=== PATIENT | female | born 2000 | race Caucasian/White ===

== ENCOUNTER 2023-05-19 16:37 | Emergency (ER) | payer OTHER, SELFPAY ==
[2023-05-19 16:42] VITALS: BP 125/86
--- NOTE | 2023-05-19 17:11 | ED.GENMED ---
History of Present Illness
General
Chief Complaint: Abdominal Pain
Source: patient and family
Exam Limitations: none
Time Seen by Provider: 05/19/23 17:05
Nursing documentation reviewed up to this point in time: agreed with
Travel History
Have you had any contact with someone who has COVID-19?: No
Do you have any symptoms of coronavirus? Fever > 100 degrees, chills, cough, shortness of breath, sore throat, loss of taste or smell, muscle aches, or headache?: No
History of Present Illness
History of Present Illness:
Patient is a 23-year-old female presents to the emergency department with acute onset of right flank and right lower quadrant abdominal pain 45 minutes prior to the emergency department. Patient states the pain is severe. Patient denies fever or
chills. Patient denies any previous history of similar pain. Patient had nausea with vomiting but denies any diarrhea or constipation. Patient admits to minimal dysuria but denies any hematuria, dark urine, urgency or frequency. Patient's
grandfather has a history of kidney stones. Patient does not get her period due to control. Patient denies any recent illnesses or injuries.
Past History
Past History
ED Past Medical History: None
Social History
Tobacco: Non-smoker
Alcohol: Binge drinker
Family History
Family History: Other
Review of Systems
Review of Systems
All Other Systems: ROS reviewed and negative except as documented in HPI and ROS
Constitutional: Reports no symptoms
EENT: Reports no symptoms
Respiratory: Reports no symptoms
Cardiac: Reports no symptoms
ABD/GI: Reports abdominal pain, nausea, vomiting and anorexia; Denies diarrhea or constipated
: Reports dysuria and flank pain; Denies frequency, urgency, bleeding or dark urine
Musculoskeletal: Reports back pain
Skin: Reports no symptoms
Neurological: Reports no symptoms
Hematologic/Lymphatic: Reports no symptoms
Phy Exam
Physical Exam
Physical Exam:
Physical Exam
General: significant distress, alert and appropriate, well nourished, well hydrated
HENT: Normocephalic, supple with no lymphadenopathy, no thyromegaly
Eyes: Clear sclera, conjuctiva without injection
Heart: Regular rhythm and rate. No S3, S4. No murmur.
Lungs: No respiratory distress, no stridor, lung sounds clear and equal bilaterally
Abdomen: Soft, minimal right-sided tenderness without guarding or rebound, no organomegaly, right CVA tenderness, BS good
Neuro: Alert and oriented x 3, CN II - XII intact, no motor focality, no cerebellar dysfunction
Skin: no rash
Psychiatric: well kept. interactive and cooperative
Extremities: No edema, cyanosis, tenderness, Good and equal peripheral pulses.
Scores
Heart Failure Risk
Heart Failure Risk Score: Not Applicable
Heart Score for Chest Pain Patients
STEMI patient?: Not applicable
Withdrawal Assessment of Alcohol
Withdrawal Assessment Completed?: Not applicable
Course
Orders/Labs/Results
Orders:
Orders
05/19/23 17:01
HYDROmorphone [Dilaudid] 1 mg .ROUTE .STK-MED ONE
Ketorolac [Toradol] 15 mg .ROUTE .STK-MED ONE
Ondansetron Injectable [Zofran] 4 mg .ROUTE .STK-MED ONE
05/19/23 17:10
0.9% Sodium Chloride 500 ml [Nss] 500 ml IV BOLUS
HYDROmorphone [Dilaudid] 1 mg IV NOW STA
Ketorolac [Toradol] 15 mg IV NOW STA
Ondansetron Injectable [Zofran] 4 mg IV NOW STA
Test Result ONCE
05/19/23 17:11
CT Abd/pel Without Iv Or Oral Urgent
Comment:
Reason For Exam: Right renal colic
05/19/23 17:16
Complete Blood Count/With Diff Urgent
Comprehensive Metabolic Panel Urgent
HCG, Serum Qualitative Screen Urgent
05/19/23 18:31
Urinalysis Reflex To Culture Urgent
Date Specimen was Collected: 05/19/23
Time Specimen was Collected: 18:30
Abnormal Lab Results
05/19/23 05/19/23
17:16 18:31
WBC 13.7 H 10^3/uL
(4.8-10.8)
MCH 33.3 H pg
(27.0-31.0)
Abs Immat Gran (auto) 0.1 H 10^3/uL
(0-0.05)
Absolute Neuts (auto) 8.1 H 10^3/uL
(1.4-6.5)
Absolute Lymphs (auto) 4.4 H 10^3/uL
(1.2-3.4)
Absolute Monos (auto) 1.0 H 10^3/uL
(0.1-0.6)
BUN 18 H mg/dl
(7-17)
Glucose 140 H mg/dl
(70-99)
AST 40 H U/L
(14-36)
ALT 51 H U/L
(0-35)
Urine Ketones 2+ A
(Negative)
05/19/23 17:16
05/19/23 17:16
Vital Signs
Initial and Last Documented VS:
Initial Vital Signs
Temp Pulse Resp BP Pulse Ox
97.7 F 84 16 125/86 98
05/19/23 16:42 05/19/23 16:42 05/19/23 16:42 05/19/23 16:42 05/19/23 16:42
Last Documented Vital Signs
Temp Pulse Resp BP Pulse Ox
97.7 F 84 16 125/86 98
05/19/23 16:42 05/19/23 16:42 05/19/23 16:42 05/19/23 16:42 05/19/23 16:42
*Radiology
Radiology exam reviewed: preliminary read by ED provider (Right UVJ stone approximately 4 to 5 mm. No hydronephrosis. Multiple kidney stones in the right and 1 on the left)
*Pulse Oximetry
Patient hypoxic: no
*EKG
Interpreted by ED Provider?: NA
*Post Form Remover Interpretation
Rate: Post Form Remover- N/A
*Critical Care Note
Total Time (30-74mins, 75-104mins- exclusive of procedures): Not Applicable
Update Note
Update Note:
Patient feeling fine at this time. Discussed to follow-up with the patient and her mother.
ED Attending Note
-
Portions of this chart may have been created with voice recognition software.� Occasional wrong word or��sound alike� substitutions may have occurred due to the inherent limitations of voice recognition software.
Discharge Plan
Departure
Patient Disposition: Home (Routine Discharge)
Date of Disposition: 05/19/23
Time of Disposition: 19:04
Patient with high blood pressure during this ER visit?: No
Condition: Good
Covid-19: Not Applicable
Discharge Problem:
Renal colic on right side, Ureterolithiasis, Bilateral nephrolithiasis
Instructions: Kidney Stones (DC), Renal Colic (DC), How to Strain Your Urine
Prescriptions:
New
ondansetron 8 mg tablet,disintegrating
8 mg PO TID PRN (Reason: nausea and vomiting) Qty: 20 0RF
ketorolac 10 mg tablet
10 mg PO QID PRN (Reason: pain) Qty: 20 0RF
tamsulosin [Flomax] 0.4 mg capsule
0.4 mg PO HS Qty: 7 0RF
oxycodone 5 mg tablet
5 mg PO Q4H PRN (Reason: Pain) Qty: 14 0RF
Referrals:
Heena Barrientos PA [Family Provider] -
Kelvin Chowdhury MD [Active] - Call in 1-3 days for appt
Interventions
Interventions:
*Risk Screen - Suicide Last Done: 05/19/23 17:18
*General Assessment Last Done: 05/19/23 17:21
*Neglect/Abuse Screening Last Done: 05/19/23 17:18
ED- Fall Risk Assessment Last Done: 05/19/23 17:18
*ED COVID-19 Vaccine History Last Done: 05/19/23 16:42
OE-Opuimg-Jzpphdrfev Assessment Last Done: 05/19/23 17:19
[2023-05-19] MEDS: ZOFRAN 4 MG IV (17:13)
[2023-05-19] MEDS: DILAUDID 1 MG IV (17:13)
[2023-05-19] MEDS: TORADOL 15 MG IV (17:13)
[2023-05-19] MEDS: NSS 500 IV (17:15)
[2023-05-19 17:18] VITALS: BMI 25.2
[2023-05-19 17:30] LABS: % Basophils 0.5 % (0-2); % Eosinophils 1.1 % (0-6); % Immature Granulocytes 0.4 % (0-0.5); % Lymphocytes 31.9 % (20.5-51.1); % Monocytes 7.4 % (1.7-9.3); % Neutrophils 58.7 % (42.2-75.2); Absolute Basophils 0.1 10^3/uL (0-0.2); Absolute Eosinophils 0.2 10^3/uL (0-0.7); Absolute Immature Granulocytes 0.1 10^3/uL (0-0.05); Absolute Lymphocytes 4.4 10^3/uL (1.2-3.4); Absolute Neutrophils 8.1 10^3/uL (1.4-6.5); Hematocrit 40.6 % (37.0-47.0); Hemoglobin 14.4 g/dL (12.0-16.0); Mean Corp Hgb Conc. 35.5 g/dL (33.0-37.0); Mean Corpuscular Hgb 33.3 pg (27.0-31.0); Mean Corpuscular Volume 93.8 fL (81.0-99.0); Mean Platelet Volume 9.6 fL (7.4-10.4); Nucleated Red Blood Cells % 0 %; Platelet Count 332 10^3/uL (130-400); Red Blood Cell Count 4.33 10^6/uL (4.20-5.40); Red Cell Dist. Width 12.5 % (11.5-14.5); White Blood Cell Count 13.7 10^3/uL (4.8-10.8)
[2023-05-19 17:44] LABS: HCG, Serum Qualitative Screen Negative
[2023-05-19 17:48] LABS: ALT (SGPT) 51 U/L (0-35); AST (SGOT) 40 U/L (14-36); Albumin 4.1 g/dl (3.5-5.0); Alkaline Phosphatase 80 U/L (38-126); Blood Urea Nitrogen 18 mg/dl (7-17); Calcium 9.6 mg/dl (8.4-10.2); Carbon Dioxide 27 mmol/L (22-30); Chloride 100 mmol/L (98-107); Estimated Creatinine Clearance 85 ml/min; Glucose 140 mg/dl (70-99); Sodium 138 mmol/L (135-145); Total Bilirubin 0.7 mg/dl (0.2-1.3); Total Protein 6.6 g/dl (6.3-8.2); eGFR > 60.00
[2023-05-19 19:00] LABS: Urine Albumin Negative (Neg - Trace); Urine Bilirubin Negative (Negative); Urine Character Clear (Clear); Urine Color Yellow; Urine Glucose Negative (Negative); Urine Ketone 2+ (Negative); Urine Leukocyte Negative (Negative); Urine Nitrite Negative (Negative); Urine Occult Blood Negative (Negative); Urine Urobilinogen Negative (Neg - 1+); Urine pH 6.5 (5.0-9.0)
[2023-05-19] MEDS: FLOMAX 0.400000000000000022 MG PO (19:41)
== END 2023-05-19 19:52 | disposition home or self-care (01) ==
LOC: EMR 16:37
PROVIDERS: EMERGENCY PHYSICIAN Emergency Medicine; FAMILY PHYSICIAN Nurse Practitioner Adult Health
DX: N20.2 Calculus of kidney with calculus of ureter (principal); Z87.442 Personal history of urinary calculi
CPT/HCPCS: 99284; 96374; 96375; 96361; 74176; 80053; 81003; 84703; 85025